=== PATIENT | male | born 1955 | race Caucasian/White ===

== ENCOUNTER 2017-10-05 05:59 | Inpatient (IN) | payer MEDICAID ==
[~2017-10-05] VITALS: Ht 170.2 cm; Wt 60.6 kg
[2017-10-05 06:51] LABS: BASOPHILS % (AUTO) 0.1 % (0.0-2.0); EOSINOPHILS % (AUTO) 1.2 % (1.0-6.0); HEMATOCRIT 30.6 % (41-53); LYMPHOCYTES # (AUTO) 1.4 K/uL (1.0-4.8); LYMPHOCYTES % (AUTO) 12.8 % (22.0-44.0); MEAN CORPUSCULAR HEMOGLOBIN 28.4 pg (26.0-34.0); MEAN CORPUSCULAR HGB CONC 32.6 G/dL (31.0-37.0); MEAN CORPUSCULAR VOLUME 87 fL (80-100); MONOCYTES # (AUTO) 0.8 K/uL (0.1-1.0); MONOCYTES % (AUTO) 7.4 % (2.0-9.0); NEUTROPHILS # (AUTO) 8.5 K/uL (1.8-7.7); NEUTROPHILS % (AUTO) 78.5 % (40.0-70.0); PLATELET COUNT (AUTO) 396 K/uL (150-450); RED BLOOD CELL COUNT(AUTO) 3.51 MIL/uL (4.50-5.90)
[2017-10-05 06:59] LABS: ALANINE AMINOTRANSFERASE 32 U/L (12-78); ALBUMIN 2.8 g/dL (3.4-5.0); ALKALINE PHOSPHATASE 94 U/L (46-116); ANION GAP 5 mmol/L (8-16); ASPARTATE AMINOTRANSFERASE 24 U/L (15-37); BILIRUBIN,TOTAL 0.5 mg/dL (0.1-1.0); CALCIUM, TOTAL 8.2 mg/dL (8.8-10.5); CARBON DIOXIDE 29 mmol/L (22-29); CHLORIDE 102 mmol/L (98-107); CREATININE 0.86 mg/dL (0.60-1.30); GLOMERULAR FILTR. RATE CALC > 60 mL/min (>60); GLUCOSE,RANDOM 96 mg/dL (70-110); POTASSIUM 3.9 mmol/L (3.5-5.1); SODIUM SERUM 136 mmol/L (136-145); TOTAL PROTEIN, SERUM 6.5 g/dL (6.4-8.2); UREA NITROGEN, BLOOD 17 mg/dL (7-18)
[2017-10-05 08:24] LABS: APPEARANCE,URINE CLEAR (CLEAR); BILIRUBIN,URINE NEGATIVE (NEGATIVE); GLUCOSE, URINE (UA) NEGATIVE (NEGATIVE); KETONES,URINE NEGATIVE (NEGATIVE); LEUKOCYTE ESTERASE ,URINE NEGATIVE (NEGATIVE); NITRATE,URINE NEGATIVE (NEGATIVE); OCCULT BLOOD,URINE NEGATIVE (NEGATIVE); PH,URINE 7.5 (5.0-8.0); PROTEIN,URINE NEGATIVE (NEGATIVE); UROBILINOGEN,URINE 0.2 mg/dL (<=1.0)
[2017-10-05 08:29] LABS: AMPHET/METH SCREEN,URINE NEGATIVE (NEGATIVE); BARBITURATE SCREEN, URINE NEGATIVE (NEGATIVE); BENZODIAZEPINES SCREEN,URINE NEGATIVE (NEGATIVE); CANNABINOID SCREEN,URINE NEGATIVE (NEGATIVE); COCAINE SCREEN,URINE NEGATIVE (NEGATIVE); METHADONE SCREEN, URINE NEGATIVE (NEGATIVE); OPIATE SCREEN,URINE NEGATIVE (NEGATIVE); PHENCYCLIDINE SCREEN,URINE NEGATIVE (NEGATIVE)
[2017-10-05] MEDS ORDERED: OLANZapine 5 MG TABLET PO ONE (09:15)
[2017-10-05] MEDS ORDERED: ZOLPIDEM TARTRATE 10 MG TABLET PO PRN (09:45)
[2017-10-05] MEDS ORDERED: LORazepam 2 MG TABLET PO PRN (09:45)
[2017-10-05] MEDS ORDERED: OLANZapine 5 MG RAPDIS TABLET PO PRN (09:45)
[2017-10-05 10:51] LABS: BACTERIA,URINE None Seen /HPF (None Seen); RBC,URINE 0-2 /HPF (0-2); SQUAMOUS EPITHELIAL CELL,UR Rare /LPF (None Seen); WBC,URINE 0-2 /HPF (0-5)
[2017-10-05 11:30] VITALS: BP 148/91
[2017-10-05 16:26] VITALS: BP 163/104
[2017-10-05] MEDS ORDERED: CloNIDine HCL 0.1 MG TABLET PO PRN (16:30)
[2017-10-05] MEDS: LISINOPRIL 5 MG TABLET PO SCH (16:47)
[2017-10-05 17:45] VITALS: BP 156/98
[2017-10-05] MEDS: OLANZapine 7.5 MG TABLET PO SCH (21:47)
[2017-10-06 07:22] LABS: CHOL/HDL RATIO 2.4 (4.2-7.3)
[2017-10-06 08:00] VITALS: BP 156/100
[2017-10-06] MEDS: LISINOPRIL 5 MG TABLET PO SCH (08:08)
[2017-10-06 16:44] VITALS: BP 118/63
[2017-10-06] MEDS: OLANZapine 7.5 MG TABLET PO SCH (20:17)
[2017-10-07 09:42] VITALS: BP 150/97
[2017-10-07] MEDS: AmLODIPine BESYLATE 2.5 MG TABLET PO SCH (09:42)
[2017-10-07] MEDS: LISINOPRIL 20 MG TABLET PO SCH (09:42)
[2017-10-07 16:23] VITALS: BP 137/79
[2017-10-07] MEDS: OLANZapine 7.5 MG TABLET PO SCH (21:01)
[2017-10-08 05:49] VITALS: BP 129/74
[2017-10-08 08:15] VITALS: BP 136/79
[2017-10-08] MEDS: AmLODIPine BESYLATE 2.5 MG TABLET PO SCH (09:13)
[2017-10-08] MEDS: LISINOPRIL 20 MG TABLET PO SCH (09:14)
[2017-10-08 16:20] VITALS: BP 108/73
[2017-10-08] MEDS: OLANZapine 7.5 MG TABLET PO SCH (20:16)
[2017-10-09 08:00] VITALS: BP 138/74
[2017-10-09] MEDS: AmLODIPine BESYLATE 2.5 MG TABLET PO SCH (11:29)
[2017-10-09] MEDS: LISINOPRIL 20 MG TABLET PO SCH (11:29)
[2017-10-09 17:14] VITALS: BP 109/74
[2017-10-09] MEDS: OLANZapine 7.5 MG TABLET PO SCH (20:12)
[2017-10-10 08:00] VITALS: BP 131/81
[2017-10-10] MEDS ORDERED: OLAN7.5T2 PO (08:31)
[2017-10-10] MEDS ORDERED: AMLO2.5T PO (08:31)
[2017-10-10] MEDS ORDERED: LISI-662 PO (08:31)
[2017-10-10] MEDS: AmLODIPine BESYLATE 2.5 MG TABLET PO SCH (09:57)
[2017-10-10] MEDS: LISINOPRIL 20 MG TABLET PO SCH (09:58)
== END 2017-10-10 11:00 | disposition home or self-care (01) | DRG 750 ==
LOC: EMS 06:01 → AHU 10:02 → 3EI 17:04
PROVIDERS: ADMIT Psychiatry & Neurology Psychiatry; ATTEND Psychiatry & Neurology Psychiatry
DX: F20.0 Paranoid schizophrenia (principal); R45.851 Suicidal ideations; Z59.0 Homelessness; I10 Essential (primary) hypertension; D64.9 Anemia, unspecified; F12.90 Cannabis use, unspecified, uncomplicated; F41.9 Anxiety disorder, unspecified; J44.9 Chronic obstructive pulmonary disease, unspecified; F17.210 Nicotine dependence, cigarettes, uncomplicated; M19.90 Unspecified osteoarthritis, unspecified site; F14.90 Cocaine use, unspecified, uncomplicated
CPT/HCPCS: 87081; 99285; G0480